=== PATIENT | male | born 1965 | race Native Hawaiian/Other Pacific Islander ===

== ENCOUNTER 2020-06-14 10:05 | Emergency (ER) | payer OTHER ==
[~2020-06-14] VITALS: Ht 188 cm; Wt 127.0 kg
[2020-06-14 10:06] VITALS: TEMP 98.3
[2020-06-14 11:24] LABS: PLATELET COUNT 312 K/uL (142-355)
[2020-06-14 12:02] LABS: POTASSIUM 3.6 mmol/L (3.6-5.2); SODIUM 137 mmol/L (136-145)
[2020-06-14 12:13] LABS: PARTIAL THROMBOPLASTIN TIME 23.6 SECONDS (24.5-33.6)
[2020-06-14 13:13] VITALS: BP 123/55
== END 2020-06-14 13:17 | disposition home or self-care (01) ==
LOC: ED 10:05
PROVIDERS: Family Medicine
DX: E86.0 Dehydration (principal); X30.XXXA Exposure to excessive natural heat, initial encounter
CPT/HCPCS: 80053; 84484; 85027; 85610; 85730; 93005; 96360; 96361; 99284

== ENCOUNTER 2020-07-05 13:46 | Outpatient (CLI) | payer BC | END 2020-07-05 19:41 | disposition home or self-care (01) | LOC: MRI 13:46 | DX: R94.02 Abnormal brain scan (principal) | CPT/HCPCS: A9576 ==